=== PATIENT | male | born 1985 | race Caucasian/White ===

== ENCOUNTER → 2020-03-13 07:58 | Outpatient (CLI) | payer BC, SELFPAY ==
[2020-02-21 14:17] VITALS: BMI 27.6
--- NOTE | 2020-03-13 07:59 | ECHOD_ITS ---
Reason For Study: Arrhythmia Procedure This was a 2D Doppler, Color Flow transthoracic echocardiogram. Myocardial strain analysis was performed in this exam to aid in the assessment of cardiac function. Exam performed in department. Left Ventricle Normal LV size. Left ventricular systolic function is normal. The estimated ejection fraction is 55 %. Normal diastology for age. No regional wall motion abnormalities noted. Right Ventricle Normal RV size. Normal systolic function. Atria Normal left atrium. Normal right atrium. Mitral Valve Normal mitral valve. Tricuspid Valve Normal tricuspid valve. Aortic Valve Normal aortic valve. Trisinus/trileaflet aortic valve. Pulmonic Valve Normal pulmonic valve. Great Vessels Normal aortic root. The pulmonary artery is normal size. Normal inferior vena cava. Pericardium/Pleural No pericardial effusion. MMode/2D Measurements & Calculations LVIDd: 5.5 cm IVSd: 1.0 cm Ao root diam: 3.0 cm LVIDs: 3.0 cm LVPWd: 0.95 cm RVDd: 3.7 cm FS: 45.5 % LAV(MOD-bp): 69.1 ml EDV(MOD-sp4): 121.8 ml EDV(MOD-sp2): 130.6 ml LAV(MOD-bp) Indexed: 31.1 ml/m2 ESV(MOD-sp4): 46.1 ml EF(MOD-sp2): 59.5 % LAV(MOD-sp2): 72.1 ml EF(MOD-sp4): 62.2 % LAV(MOD-sp4): 64.2 ml SV(MOD-sp4): 75.7 ml SV(MOD-sp2): 77.7 ml LA A4 area: 21.0 cm2 LA dimension(2D): 3.7 cm RA A4 area: 16.9 cm2 Doppler Measurements & Calculations MV E max ahsan: 73.4 cm/sec Lat Peak E' Ahsan: 14.6 cm/sec Med Peak E' Ahsan: 8.5 cm/sec MV A max ahsan: 42.7 cm/sec E/E' lat: 5.0 E/E' med: 8.6 MV E/A: 1.7 Ao V2 max: 123.7 cm/sec LV V1 max: 105.6 cm/sec PA V2 max: 112.9 cm/sec Ao max P.1 mmHg LV V1 max P.5 mmHg TR max ahsan: 212.6 cm/sec TR max P.1 mmHg Interpretation Summary Normal LV size. Left ventricular systolic function is normal. The estimated ejection fraction is 55 %. Normal diastology for age. The global longitudinal strain is normal. The global longitudinal strain = -19.4 % (normal). Ordering Physician: Forrest Lebron Referring Physician: Forrest Lebron Performed By: Libby Diaz RDCS
== END ==
PROVIDERS: Referring Provider Internal Medicine Cardiovascular Disease; Visit Provider Internal Medicine Cardiovascular Disease
DX: R00.1 Bradycardia, unspecified (principal)
CPT/HCPCS: 93306

== ENCOUNTER 2020-07-16 20:04 | Emergency (ER) | payer BC, SELFPAY ==
[2020-02-21 14:17] VITALS: BMI 27.6
[2020-07-16 20:05] VITALS: BP 139/78; PULSE 70; RESP 16; TEMP 36.1; O2SAT 97; BMI 28.3
--- NOTE | 2020-07-16 20:15 | ED.VIS.GEN ---
History of Present Illness Chief Complaint: Abd Pain Informant: Patient Onset: Days Context: Gradual Onset Timing: Continuous Current Severity: Moderate Maximum Severity: Severe Narrative: Patient is a 35-year-old male with medical history significant for muscular dystrophy and remote hernia repair the presents to the emergency department abdominal pain. Patient states that it began 2 days ago. He states mostly in the epigastric region and radiates to both upper quadrants. He states yesterday, he had multiple bouts of emesis. Today, he just had significant pain. He denies any fevers or chills. He states he had a difficult time moving his bowels. The pain does not radiate into his lower quadrants. He denies any urinary symptoms. He denies any sick contacts. Prior similar symptoms: No Recent Illness/Hospitalization: No Past Medical History - Allergies and Home Meds Allergies/Adverse Reactions: Allergies No Known Allergies Allergy (Verified 07/16/20 20:05) Primary Care Physician: Care Physician,No Primary [Primary Care Provider] - Prior records reviewed: Yes Past Medical History: - - Muscular dystrophy Surgical History: noncontributory Smoking Status: Never smoker Review of Systems General: Denies: Chills, Fever, Sweats Eyes: Denies: Visual changes - bilaterally, Diplopia ENT: Denies: Rhinorrhea, Sore throat Cardiovascular: Denies: Chest pain, Palpitations Respiratory: Denies: Dyspnea, Cough, Dyspnea on exertion Gastrointestinal: Reports: Abdominal pain, Nausea, Vomiting. Denies: Diarrhea, Melena, Hematochezia Genitourinary: Denies: Dysuria, Hematuria, Frequency Musculoskeletal: Denies: Back pain, Extremity Pain Skin: Denies: Rash, Wounds Neurological: Denies: Headache, Weakness, Numbness Physical Exam Vital Signs/Narrative: Vital Signs Temp Pulse Resp BP Pulse Ox 07/16/20 20:05 97 F L 70 16 139/78 H 97 Inital Vital Signs reviewed: Yes General: Well nourished, Well developed, No Acute Distress Head: Normocephalic, Atraumatic Eyes: Perrl, EOMI ENT: Moist mucous membranes, No rhinorrhea Neck: Supple, Nontender Cardiovascular: Regular rate, Regular rhythm, No murmurs Respiratory: No distress, CTA bilaterally, Chest nontender Abdomen: Soft, Nondistended, Normal bowel sounds, Tender. Negative for: Guarding, Rebound tenderness Back: Nontender, Normal Inspection Extremities: Nontender, No edema Skin: Normal color, No rash Neurological: Alert, Oriented x3, Cranial nerves II-XII grossly intact, Normal Strength, Normal Sensation Psychological: Normal affect, Normal Mood Diagnostic/Tx/Re-eval Abnormal Lab Results 07/16/20 07/16/20 20:25 20:25 WBC 12.6 H RBC 5.75 Hgb 16.9 H Hct 48.4 MCV 84.2 MCH 29.4 MCHC 34.9 RDW Std Deviation 34.5 L RDW Coeff of Porsha 11.3 L Plt Count 304 MPV 8.4 Immature Gran % (Auto) 0.500 Neut % (Auto) 73.5 H Lymph % (Auto) 17.5 L [place] % (Auto) 7.5 Eos % (Auto) 0.6 Baso % (Auto) 0.4 Absolute Neuts (auto) 9.3 H Absolute Lymphs (auto) 2.21 Nucleated RBC % 0 Sodium 137 Potassium 3.1 L Chloride 104 Carbon Dioxide 25.0 Anion Gap 8 BUN 13 Creatinine 1.19 Estim Creat Clear Calc 97.92 Est GFR (MDRD) Af Amer 89 Est GFR (MDRD) Non-Af 74 BUN/Creatinine Ratio 10.9 Glucose 115 H Calcium 9.3 Total Bilirubin 0.70 AST 30 ALT 72 H Alkaline Phosphatase 63 Total Protein 8.4 H Albumin 4.5 Globulin 3.9 Albumin/Globulin Ratio 1.2 Lipase 655 H - Medical Decision Making Patient presents with midepigastric abdominal pain, nausea, and vomiting. He has had no blood in his emesis. He does admit to some mild constipation. IV was established. He was given fluids, Zofran, morphine. On reevaluation he is much more comfortable. Screening labs were obtained. There are some mild elevation of his lipase, but not in the level of acute pancreatitis. The patient will undergo CT imaging given his pain. I do feel that there is not significant acute abnormalities he can safely be discharged with acid reduction and nausea medication. This will be signed out to the oncoming physician. Impression 1. Epigastric abdominal pain ED Disposition - Plan for ED Patient: Instructions: ED PEPTIC ULCER vs GASTRITIS Prescriptions: Sucralfate [Carafate] 1 gm PO 4X/DAY #120 tab Prescription Printed Famotidine [Pepcid] 20 mg PO BID #28 tab Prescription Printed Ondansetron [Zofran Odt] 4 mg PO Q8H PRN PRN #10 tab PRN Reason: Nausea Prescription Printed Referrals: Andrés Arredondo MD [STAFF PHYSICIAN] -
[2020-07-16] MEDS: Ondansetron 4 MG/2 ML Vial IV (20:33)
[2020-07-16] MEDS: Morphine 4 MG/ML Syringe IV (20:33)
[2020-07-16] MEDS: 0.9% Normal Saline 1,000 ML 1000 ML IV (20:35)
[2020-07-16 20:37] LABS: Absolute Lymphocyte Count 2.21 X10^3/uL (0.83-4.51); Absolute Neutrophil Count 9.3 X10^3/uL (2.0-7.7); Basophil# 0.05 X10^3/uL; Basophil% 0.4 % (0-1); Eosinophil# 0.07 X10^3/uL; Eosinophils% 0.6 % (0-5); Hematocrit 48.4 % (40-54); Hemoglobin 16.9 g/dL (13.0-16.5); Lymphocyte # 2.21 X10^3/ul (4.0); Lymphocyte % 17.5 % (19-41); Mean Corp Hgb Conc 34.9 g/dL (32-36); Mean Corpuscular Hgb 29.4 pg (27.0-32.0); Mean Corpuscular Volume 84.2 fL (80-94); Mean Platelet Vol. 8.4 fl (6.2-12.0); Monocyte# 0.95 X10^3/uL; Monocyte% 7.5 % (0-10); NRBC Flagged by Analyzer 0 % (0-5); Neutrophil # 9.28 X10^3/uL (2.7-7.7); Neutrophil % 73.5 % (47-70); Platelet Count 304 K/mm3 (150-450); RBC Distribution Width CV 11.3 % (11.6-14.6); RBC Distribution Width SD 34.5 fl (35.1-43.9); Red Blood Count 5.75 M/mm3 (4.6-6.2); White Blood Count 12.6 K/mm3 (4.4-11.0)
[2020-07-16 20:52] LABS: ALB/GLOB Ratio 1.2 RATIO (0.9-2.4); AST(SGOT) 30 U/L (15-37); Alanine Aminotransfer ALT/SGPT 72 U/L (16-61); Albumin, Serum 4.5 g/dL (3.2-5.0); Alkaline Phosphatase 63 U/L (45-117); Anion Gap 8 (5-15); BUN 13 mg/dL (7-18); BUN/Creat Ratio 10.9 RATIO (10-20); Calcium,Total 9.3 mg/dL (8.5-10.1); Chloride 104 mmol/L (98-107); Creatinine, Serum 1.19 mg/dL (0.70-1.30); EST Glomerular Filtration Rate 74 mL/min (>60); Est Glom Filt Rate - Afr Amer 89 mL/min (>60); Estimated Creatinine Clearance 97.92 ml/min; Globulin 3.9 g/dL (2.2-4.2); Glucose 115 mg/dL (74-106); Lipase 655 U/L (73-393); Potassium 3.1 mmol/L (3.5-5.1); Protein, Total 8.4 g/dL (6.4-8.2); Sodium Level 137 mmol/L (136-145)
--- NOTE | 2020-07-16 21:04 | CT_ITS ---
STUDY: CT ABDOMEN AND PELVIS WITH CONTRAST REASON FOR EXAM: Male, 35 years old. EPIGASTRIC PAIN, VOMITING, NAUSEA. HX OF HERNIA REPAIR RADIATION DOSAGE (If Supplied By Facility): CTDIvol = ( 13.27 ) mGy, DLP = ( 984.12 ) mGycm TECHNIQUE: Transaxial images were obtained from the dome of the diaphragm to the symphysis pubis without oral contrast. IV 100mL Isovue-300 was administered. Sagittal and coronal images were reconstructed. Individualized dose optimization techniques were used for this CT. COMPARISON: None. FINDINGS: Mild fluid and gaseous distention of the distal jejunum and proximal ileal loops in the mid abdominal region. No zone of transition is seen to suggest obstruction. The remaining small bowel loops are within normal limits. Normal colon. Mild thickening of the mucosal folds in the body of the stomach and hyperenhancement compatible with gastritis. No bowel masses are seen. No free air or free fluid is present. Normal appendix. The visualized lung bases are unremarkable. The visualized portions of the heart are within normal limits. Small benign cyst is present in the far anterior falciform ligament region of the right lobe of the liver which requires no additional imaging. The remaining aspects of the liver are normal. Normal gallbladder and extrahepatic biliary system. Normal spleen. Normal pancreas. Normal bilateral adrenal glands. Normal right kidney. Normal left kidney. Normal abdominal aorta. Normal inferior vena cava. Normal retroperitoneum. Normal urinary bladder. Normal abdominal wall. Hernia mesh and chronic reparative changes are present in the left lower quadrant/inguinal junction. Normal osseous structures. CT/Abdomen/Pelvis W IV Cont ONLY IMPRESSION: 1. Mild enteritis - Mild fluid and gaseous distention of the distal jejunum and proximal ileal loops in the mid abdominal region. No zone of transition is seen to suggest obstruction. 2. Mild thickening of the mucosal folds in the body of the stomach and hyperenhancement compatible with gastritis. No bowel masses are seen. 3. No free air or free fluid is present. Electronically Signed: Mendel Ralph MD at 21:37 EST , Service support ,
[2020-07-16 22:44] VITALS: BP 147/84; PULSE 66; RESP 14
== END 2020-07-16 22:44 | disposition home or self-care (01) ==
LOC: ED 21:08
PROVIDERS: Emergency Provider Emergency Medicine
DX: R10.13 Epigastric pain (principal); G71.00 Muscular dystrophy, unspecified
CPT/HCPCS: 74177; 80053; 83690; 85025; 96361; 96365; 96375; 99283; J7030; Q9967; A4216; J2405

== ENCOUNTER → 2021-02-19 09:57 | Outpatient (CLI) | payer BC, SELFPAY ==
[2021-02-19 08:18] VITALS: BMI 27.6
[2021-02-19 10:53] LABS: Anion Gap 1 (5-15); BUN 13 mg/dL (7-18); BUN/Creat Ratio 12.5 RATIO (10-20); Calcium,Total 9.5 mg/dL (8.5-10.1); Chloride 106 mmol/L (98-107); Creatinine, Serum 1.04 mg/dL (0.70-1.30); EST Glomerular Filtration Rate 86 mL/min (>60); Est Glom Filt Rate - Afr Amer 104 mL/min (>60); Glucose 97 mg/dL (74-106); Magnesium 2.5 mg/dL (1.6-2.6); Potassium 5.2 mmol/L (3.5-5.1); Sodium Level 138 mmol/L (136-145)
== END ==
PROVIDERS: Referring Provider Nurse Practitioner Gerontology; Visit Provider Nurse Practitioner Gerontology
DX: G71.02 Facioscapulohumeral muscular dystrophy (principal)
CPT/HCPCS: 36415; 80048; 83735

== ENCOUNTER → 2021-03-08 06:54 | Outpatient (CLI) | payer BC, SELFPAY ==
[2021-02-19 08:18] VITALS: BMI 27.6
--- NOTE | 2021-03-08 10:42 | STRESSREP_ITS ---
Stress Test Report Exercise stress test 35-year-old man with a history of facioscapulohumeral muscular dystrophy. Stress protocol: Resting KG demonstrates sinus rhythm with a rate of 64 bpm sinus arrhythmia is noted. Resting blood pressure is 118/78 mmHg. The patient exercised according to regular Caleb protocol for total duration of 9 minutes and 15 seconds. Patient completed 15 seconds into stage IV of the Caleb protocol. The maximum heart rate attained was 150 bpm which was 81% of max infected heart rate the maximum workload was 10.9 metabolic equivalents. At rest there were no ST or T wave changes noted to suggest ischemia and at peak exercise upsloping ST changes only were noted with did not meet the criteria for ischemia. No evidence of ch ronotropic incompetence was noted. No clinical angina was noted the test was terminated due to back discomfort. The peak blood pressure was 150/76 mmHg. Myocardial perfusion protocol. 10.4 mCi of technetium 99m sestamibi was injected at rest. 0.4 mg of regadenoson was infused per usual protocol. At peak infusion 32.8 mCi of technetium 99m sestamibi was injected stress images were obtained stress and rest images were reconstructed and compared in the short axis vertical long and horizontal long axis. Gated images were also obtained. Perfusion SPECT analysis: Review of the stress images demonstrate a mild amount of reduction in the mid anterior wall on the stress images. The septum and lateral wall and inferior wall appeared to be well perfused. The resting images demonstrate a similar amount. This may be secondary to breast attenuation artifact or secondary to the myocardial dystrophy. No improvement is noted to suggest ischemia. Gated SPECT analysis: The gated ejection fraction is 57%. Conclusion: Mildly reduced mid anterior perfusion defect suggestive of attenuation or infarct. No ischemia noted. Preserved ejection fraction.
== END ==
LOC: CVS 06:55
PROVIDERS: Referring Provider Nurse Practitioner Gerontology; Visit Provider Nurse Practitioner Gerontology
DX: R07.9 Chest pain, unspecified (principal)
CPT/HCPCS: 78452; 93017; A9500; A4216